=== PATIENT | female | born 1930 | race Caucasian/White ===

== ENCOUNTER 2017-12-26 11:18 | Emergency (ER) | payer MEDICARE, OTHER ==
[~2017-12-26] VITALS: Ht 144.8 cm; Wt 66.7 kg
[~2017-12-26 11:18] MED LIST: AROMASIN25 MG PO; ASPIRIN81 M2 PO; AZOPT OPHTH1 %/10 M1 OP; BYSTOLIC 5 MG5 M1 PO; CARAFATE 1 GM TA1 G1 PO; CHLORTHALIDONE25 MG PO; FLEXERIL PO; HYDROCODON-ACE1 EAC7 PO; LASIX 20 MG TAB20 MG PO; LEVOTHYROXINE0.05 MG PO; LIPITOR 10 MG10 M1 PO; MICARDIS 80 MG80 MG PO; NEURONTIN 300300 M1 PO; NEXIUM40 MG PO; NORVASC5 MG PO; PEPCID20 MG PO; PEPCID40 MG PO; PERCOCET 5-3251 EACH PO; PROAIR HFA8.5 GM IH; RESTASIS1 EACH OP; TRAMADOL 50 MG50 MG PO; TRIAMTERENE-HC1 EAC1 PO; ULORIC80 MG PO; VITAMIN C500 M1 PO; XALATAN2.5 ML OPHTHALMIC; ZOFRAN4 MG PO; ZPAK PO; ZYRTEC10 M2 PO
[2017-12-26 12:42] LABS: ABSOLUTE BASOPHILS 0.2 thou/uL (0.0-0.2); ABSOLUTE EOSINOPHILS 0.1 thou/uL (0.0-0.7); ABSOLUTE LYMPHOCYTES 1.6 thou/uL (0.8-5.3); ABSOLUTE MONOCYTES 0.9 thou/uL (0.0-1.2); ABSOLUTE NEUTROPHILS 11.1 thou/uL (1.6-8.1); BASOPHILS 1.2 %; EOSINOPHILS 0.9 %; HEMATOCRIT 41.5 % (37.0-47.0); HEMOGLOBIN 13.6 gm/dL (12.0-15.0); LYMPHOCYTES 11.8 %; MCH 29.4 pg (26.0-34.0); MCHC 32.7 g/dL (28.0-37.0); MCV 89.8 fL (80.0-100.0); MONOCYTES 6.4 %; MPV 7.6 fl. (7.2-11.1); NUCLEATED RBCS 0 /100WBC; PLATELET COUNT* 243 thou/uL (150-400); POLYS 79.7 %; RBC 4.62 mil/uL (4.20-5.00); RDW-CV 15.6 % (10.5-14.5)
[2017-12-26 12:49] LABS: ANION GAP 10 mmol/L (7-16); BUN 27 mg/dL (7-18); CALCIUM 9.2 mg/dL (8.5-10.1); CHLORIDE 101 mmol/L (98-107); CO2 28 mmol/L (21-32); CREATININE 1.1 mg/dL (0.6-1.3); GLUCOSE 150 mg/dL (70-99); POTASSIUM 3.8 mmol/L (3.5-5.1); SODIUM 139 mmol/L (136-145)
[2017-12-26 12:53] LABS: APTT 24.8 Seconds (25.0-31.3); INR 1.1; PROTIME 10.3 Seconds (9.20-11.50)
[2017-12-26 12:56] LABS: ALBUMIN 3.9 g/dL (3.4-5.0); ALKALINE PHOSPHATASE 96 U/L (46-116); LIPASE 321 U/L (73-393); SGOT 36 U/L (15-37); SGPT 36 U/L (30-65); TOTAL BILIRUBIN 0.5 mg/dL (<0.1-1.0); TOTAL PROTEIN 7.8 g/dL (6.4-8.2); TROPONIN-I LEVEL <0.06 ng/mL (<0.06)
[2017-12-26] MEDS ORDERED: HYDROCODONE-AP1 EAC6 PO (16:11)
[2017-12-26 16:23] VITALS: BP 134/72
--- NOTE | 2017-12-27 11:42 | EKG ---
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
== END 2017-12-26 16:24 | disposition home or self-care (01) ==
LOC: M.ERS 11:18
PROVIDERS: Physician Assistant
DX: M54.2 Cervicalgia (principal); I10 Essential (primary) hypertension; Z90.710 Acquired absence of both cervix and uterus; Z85.3 Personal history of malignant neoplasm of breast; Z85.43 Personal history of malignant neoplasm of ovary; Z96.652 Presence of left artificial knee joint; Z88.8 Allergy status to other drugs, medicaments and biological substances; Z88.5 Allergy status to narcotic agent; Z88.1 Allergy status to other antibiotic agents; Z88.2 Allergy status to sulfonamides; Z91.041 Radiographic dye allergy status; Z88.6 Allergy status to analgesic agent; Z87.891 Personal history of nicotine dependence

== ENCOUNTER → 2018-03-02 | Outpatient (CLI) | payer MEDICARE, OTHER ==
[~2018-03-02] MED LIST changes: +HYDROCODONE-AP1 EAC6 PO
== END ==
LOC: M.RAD 02-23 09:00
DX: R92.8 Other abnormal and inconclusive findings on diagnostic imaging of breast (principal)

== ENCOUNTER 2018-04-26 23:18 | Emergency (ER) | payer MEDICARE, OTHER ==
[~2018-04-26] VITALS: Ht 157.5 cm; Wt 68.0 kg
[2018-04-27 00:02] LABS: ABSOLUTE BASOPHILS 0.1 thou/uL (0.0-0.2); ABSOLUTE EOSINOPHILS 0.1 thou/uL (0.0-0.7); ABSOLUTE LYMPHOCYTES 1.9 thou/uL (0.8-5.3); ABSOLUTE MONOCYTES 1.4 thou/uL (0.0-1.2); ABSOLUTE NEUTROPHILS 9.7 thou/uL (1.6-8.1); BASOPHILS 0.5 %; HEMATOCRIT 37.9 % (37.0-47.0); HEMOGLOBIN 12.5 gm/dL (12.0-15.0); LYMPHOCYTES 14.3 %; MCH 29.1 pg (26.0-34.0); MCHC 32.9 g/dL (28.0-37.0); MCV 88.5 fL (80.0-100.0); MONOCYTES 10.3 %; MPV 7.8 fl. (7.2-11.1); NUCLEATED RBCS 0 /100WBC; PLATELET COUNT* 189 thou/uL (150-400); POLYS 73.9 %; RBC 4.28 mil/uL (4.20-5.00); RDW-CV 15.4 % (10.5-14.5); WBC 13.2 thou/uL (4.0-11.0)
[2018-04-27 00:10] LABS: ANION GAP 11 mmol/L (7-16); BUN 25 mg/dL (7-18); CALCIUM 8.8 mg/dL (8.5-10.1); CHLORIDE 99 mmol/L (98-107); CO2 25 mmol/L (21-32); GLUCOSE 152 mg/dL (70-99); SODIUM 135 mmol/L (136-145)
[2018-04-27 00:12] LABS: POTASSIUM 4.1 mmol/L (3.5-5.1)
[2018-04-27 00:17] LABS: ALBUMIN 3.3 g/dL (3.4-5.0); ALKALINE PHOSPHATASE 94 U/L (46-116); SGOT 35 U/L (15-37); SGPT 29 U/L (30-65); TOTAL BILIRUBIN 0.5 mg/dL (<0.1-1.0); TOTAL PROTEIN 7.4 g/dL (6.4-8.2); TROPONIN-I LEVEL <0.06 ng/mL (<0.06)
[2018-04-27] MEDS ORDERED: ZOFRAN4 MG PO (00:52)
[2018-04-27] MEDS ORDERED: PERCOCET 5-3251 EACH PO (00:52)
[2018-04-27 01:29] VITALS: BP 124/74
--- NOTE | 2018-04-27 11:41 | EKG ---
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 : 1930 Requested By: Husam Mcwilliams Order Number: [id number] MD: Jorge Cueto Measurements Intervals [place] Rate: 67 P: 24 ME: 181 QRS: -17 QRSD: 93 T: 23 QT: 418 QTc: 442 Interpretive Statements Sinus rhythm Left ventricular hypertrophy Compared to ECG 12/26/2017 12:18:26 No significant changes Electronically Signed On 04-27-2018 11:41:39 CDT by Jorge Cueto [email or web address] <ELECTRONICALLY SIGNED> By: Jorge Cueto MD, [facility] 04/27/18 1141 42 42 Jorge Cueto MD, [facility] /EPI
== END 2018-04-27 01:31 | disposition home or self-care (01) ==
LOC: M.ERS 23:18
PROVIDERS: Emergency Medicine
DX: M25.511 Pain in right shoulder (principal); I10 Essential (primary) hypertension; Z87.891 Personal history of nicotine dependence; Z88.0 Allergy status to penicillin; Z88.1 Allergy status to other antibiotic agents; Z88.6 Allergy status to analgesic agent; Z88.5 Allergy status to narcotic agent; Z88.8 Allergy status to other drugs, medicaments and biological substances; Z90.711 Acquired absence of uterus with remaining cervical stump; Z85.3 Personal history of malignant neoplasm of breast

== ENCOUNTER 2018-08-31 18:07 | Emergency (ER) | payer MEDICARE, OTHER ==
[~2018-08-31] VITALS: Ht 152.4 cm; Wt 63.5 kg
[2018-08-31 23:15] VITALS: BP 148/79
== END 2018-08-31 23:16 | disposition home or self-care (01) ==
LOC: M.ERS 18:07
DX: M25.512 Pain in left shoulder (principal); R51 Headache; W01.0XXA Fall on same level from slipping, tripping and stumbling without subsequent striking against object, initial encounter; Y93.89 Activity, other specified; Y92.89 Other specified places as the place of occurrence of the external cause; Y99.8 Other external cause status; I10 Essential (primary) hypertension; Z85.43 Personal history of malignant neoplasm of ovary; Z85.3 Personal history of malignant neoplasm of breast; Z96.652 Presence of left artificial knee joint; Z88.0 Allergy status to penicillin; Z88.5 Allergy status to narcotic agent; Z88.2 Allergy status to sulfonamides; Z88.8 Allergy status to other drugs, medicaments and biological substances

== ENCOUNTER 2018-12-12 09:45 | Inpatient (IN) | payer MEDICARE, OTHER ==
[~2018-12-12] VITALS: Ht 152.4 cm; Wt 69.9 kg
[~2018-12-12 09:45] MED LIST changes: -LEVOTHYROXINE0.05 MG PO; +SYNTHROID50 MCG PO
[2018-12-12 09:52] VITALS: BP 187/90
[2018-12-12] MEDS ORDERED: ATORVASTATIN CA40 MG PO (09:59)
[2018-12-12] MEDS ORDERED: AROMASIN25 MG PO (10:01)
[2018-12-12] MEDS ORDERED: NORCO 5-325 TA1 EACH PO (10:02)
[2018-12-12] MEDS ORDERED: MAXIMUM ENERGY1 EACH PO (10:02)
[2018-12-12] MEDS ORDERED: TRAMADOL 50 MG50 MG PO (10:04)
[2018-12-12 10:28] LABS: ABSOLUTE EOSINOPHILS 0.1 thou/uL (0.0-0.7); ABSOLUTE LYMPHOCYTES 1.9 thou/uL (0.8-5.3); ABSOLUTE MONOCYTES 0.7 thou/uL (0.0-1.2); BASOPHILS 0.5 %; EOSINOPHILS 1.6 %; HEMATOCRIT 42.1 % (37.0-47.0); HEMOGLOBIN 13.7 gm/dL (12.0-15.0); MCHC 32.6 g/dL (28.0-37.0); MCV 91.9 fL (80.0-100.0); MONOCYTES 7.6 %; MPV 7.4 fl. (7.2-11.1); NUCLEATED RBCS 0 /100WBC; PLATELET COUNT* 210 thou/uL (150-400); POLYS 68.3 %; RBC 4.58 mil/uL (4.20-5.00); RDW-CV 13.8 % (10.5-14.5); WBC 8.8 thou/uL (4.0-11.0)
[2018-12-12 10:36] LABS: ANION GAP 8 mmol/L (7-16); BUN 25 mg/dL (7-18); CALCIUM 9.1 mg/dL (8.5-10.1); CHLORIDE 104 mmol/L (98-107); CO2 25 mmol/L (21-32); CREATININE 0.9 mg/dL (0.6-1.3); GLUCOSE 119 mg/dL (70-99); POTASSIUM 4.1 mmol/L (3.5-5.1); PROTIME 9.9 Seconds (9.20-11.50); SODIUM 137 mmol/L (136-145)
[2018-12-12 10:47] LABS: ALBUMIN 3.1 g/dL (3.4-5.0); ALKALINE PHOSPHATASE 71 U/L (46-116); LIPASE 466 U/L (73-393); NT-PRO BRAIN NAT PEPTIDE 149 pg/mL (<300); SGOT 18 U/L (15-37); SGPT 24 U/L (30-65); TOTAL BILIRUBIN 0.7 mg/dL (<0.1-1.0); TOTAL PROTEIN 6.8 g/dL (6.4-8.2); TROPONIN-I LEVEL <0.06 ng/mL (<0.06)
[2018-12-12 14:38] LABS: URINE BILIRUBIN NEGATIVE (Negative); URINE BLOOD TRACE (Negative); URINE CLARITY CLEAR; URINE COLOR YELLOW; URINE GLUCOSE-RANDOM NEGATIVE (Negative); URINE KETONES NEGATIVE (Negative); URINE LEUKOCYTES-REFLEX NEGATIVE (Negative); URINE NITRITE-REFLEX NEGATIVE (Negative); URINE PROTEIN NEGATIVE (Negative); URINE UROBILINOGEN 0.2 E.U./dl (0.2-1.0)
--- NOTE | 2018-12-12 15:47 | 2DMMODE ---
[place] [address] 2 D/M-MODE ECHOCARDIOGRAM Name: AUNDREA STUART Room: 170-16 ADM IN .R.#: [id number] Admission: 12/12/18 Attend Phys: Sharlene Sun, Discharge: Date of : 32 Date of Service: 12/12/18 1547 Report #: [id number] THIS REPORT FOR: //name// APPROVED REPORT Study performed: 12/12/2018 14:29:02 EXAM: Comprehensive 2D, Doppler, and color-flow Echocardiogram Patient Location: In-Patient Room #: er Status: routine BSA: 1.60 HR: 61 bpm BP: 92/42 mmHg Rhythm: NSR Other Information Study Quality: Good Indications Hypotension Chest Pain 2D Dimensions IVSd: 10.06 (7-11mm) LVOT Diam: 20.78 (18-24mm) LVDd: 38.91 mm PWd: 8.65 (7-11mm) Ascending Ao: 35.56 (22-36mm) LVDs: 23.85 (25-40mm) Aortic Root: 31.33 mm Volumes Left Atrial Volume (Systole) LA ESV Index: 16.60 mL/m2 Aortic Valve AoV Peak Kian.: 1.10 m/s AO Peak Gr.: 4.84 mmHg LVOT Max P.95 mmHg AO Mean Gr.: 3.01 mmHg LVOT Mean P.77 mmHg LVOT Max V: 1.11 m/s AO V2 VTI: 24.73 cm LVOT Mean V: 0.77 m/s JAZ (VTI): 3.67 cm2 LVOT V1 VTI: 26.76 cm Mitral Valve E/A Ratio: 0.63 MV Decel. Time: 279.71 [place] [address] 2 D/M-MODE ECHOCARDIOGRAM Name: AUNDREA STUART Room: [address] IN M.R.#: [id number] Admission: 12/12/18 Attend Phys: Sharlene Sun, Discharge: Date of : 31 Date of Service: 12/12/18 1547 Report #: [id number] MV E Max Kian.: 0.57 m/s MV PHT: 81.12 ms MVA (PHT): 2.71 cm2 TDI E/Lateral E': 9.50 E/Medial E': 8.14 Medial E' Kian.: 0.07 m/s Lateral E' Kian.: 0.06 m/s Pulmonary Valve PV Peak Kian.: 0.69 m/s PV Peak Gr.: 1.92 mmHg Tricuspid Valve RAP Estimate: 5.00 mmHg TR Peak Gr.: 20.34 mmHg RVSP: 25.00 mmHg PA Pressure: 25.00 mmHg Left Ventricle The left ventricle is normal size. There is normal LV segmental wall motion. There is normal left ventricular wall thickness. Left ventricular systolic function is normal. LVEF is 60-65%. Grade I - abnormal relaxation pattern. Right Ventricle The right ventricle is normal size. The right ventricular systolic function is normal. Atria The left atrium size is normal. The right atrium size is normal. Aortic Valve The aortic valve is normal in structure. Mild aortic regurgitation. There is no aortic valvular stenosis. Mitral Valve The mitral valve is normal in structure. There is no mitral valve regurgitation noted. No evidence of mitral valve stenosis. Tricuspid Valve The tricuspid valve is normal in structure. Trace tricuspid regurgitation. No pulmonary hypertension. Pulmonic Valve The pulmonary valve is normal in structure. [place] [address] 2 D/M-MODE ECHOCARDIOGRAM Name: AUNDREA STUART Justice Room: [address] IN [facility]#: [id number] Admission: 12/12/18 Attend Phys: Sharlene Sun, Discharge: Date of : 31 Date of Service: 12/12/18 1547 Report #: [id number] Great Vessels The aortic root is normal in size. IVC is normal in size and collapses >50% with inspiration. Pericardium There is no pericardial effusion. <Conclusion> The left ventricle is normal size. There is normal left ventricular wall thickness. Left ventricular systolic function is normal. LVEF is 60-65%. Grade I - abnormal relaxation pattern. Mild aortic regurgitation. Mild pulmonic regurgitation. Trace tricuspid regurgitation. No pulmonary hypertension. IVC is normal in size and collapses >50% with inspiration. <ELECTRONICALLY SIGNED> By: Adonay Medina MD, FACC 12/12/18 1547 1547 1547 Adonay Medina MD, FACC /INF
[2018-12-12 16:10] VITALS: BP 162/74
[2018-12-12 16:11] VITALS: BP 118/60
--- NOTE | 2018-12-12 16:46 | EKG ---
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 12/12/18 1645 0954 0954 Adonay Medina MD, [facility] /EPI
--- NOTE | 2018-12-12 18:48 | NUR ---
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 PT DENIES ANY PAIN, UP WITH STANDBY ASSIST. PT TO BE NPO AFTER MIDNIGHT FOR ECHO TOMORROW.
[2018-12-12 19:44] VITALS: BP 133/59
[2018-12-13] VITALS (8 sets, daily range): BP systolic 114–167; BP diastolic 59–74
--- NOTE | 2018-12-13 05:06 | NUR ---
PT RESTING IN BED. RA, SR/SB ON MONITOR. PT HAS BEEN NPO SINCE MIDNIGHT FOR AM CARDIAC CONSULT. BP HAS BEEN STABLE AND NOT ELEVATED DURING MY SHIFT.
--- NOTE | 2018-12-13 12:37 | NUR ---
Pt is A&O. Resides at home with her . Independent and active. No DME. Hx of and SNF in [place], [place]. Granddaughter is planning to come and stay with Pt and , both have surgeries planned. [place] is home at [place], no needs anticipated.
--- NOTE | 2018-12-13 17:12 | NUR ---
ASSUMED PT CARE AT 0730, FULL ASSESMENT DONE CHARTED. PT A/X4, UP AD GIULIA IN ROOM, DENIES PAIN, STATES SHE BECOMES NAUSEATED ON AND OFF, PT NEVER REPORTS IT WHEN HAPPENS WHEN RN GOES TO CHECK ON PT BUT IT HAS ALREADY PASSED. PTS MEDS ADJUSTED TODAY PER CARDIOLOGY. BP STABLE, SB ON THE MONITOR. CALLS APPROPRIALTY FOR NEEDS. WILL CONTINUE TO MONITOR.
[2018-12-14 05:13] VITALS: BP 198/89
[2018-12-14 05:38] VITALS: BP 196/74
--- NOTE | 2018-12-14 05:38 | NUR ---
PATIENT'S BLOOD PRESSURE ELEVATED THIS AM, ALTHOUGH WNL THROUGHOUT NIGHT. PATIENT C/O NAUSEA AND HEADACHE WITH THE HYPERTENSION. PHYSICIAN PAGED FOR ORDERS. AWAITING CALL BACK. OVERNIGHT OXIMETRY STUDY COMPLETED. CALL LIGHT WITHIN REACH
[2018-12-14 08:00] VITALS: BP 156/63
--- NOTE | 2018-12-14 08:51 | NUR ---
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 VSS, PT DENIES ANY PAIN, NAUSEA, SOA. C/O IRRITATION TO RIGHT EYE, STATES WOULD LIKE AN ANTIBIOTIC, EDUCATED PT SHE IS CURRENTLY GETTING ABT GTTS TO EYE BUT WOULD NOTIFY DR OF ISSUE. SCLERA IS WHITE WITH NO S/S IRRITATION BUT EYE LID IS RED AND SLIGHTLY SWOLLEN. WILL CONT TO MONITOR.
[2018-12-14 11:55] VITALS: BP 136/72
[2018-12-14] MEDS ORDERED: BYSTOLIC 5 MG5 M1 PO (12:03)
[2018-12-14] MEDS ORDERED: MICARDIS 80 MG80 MG PO (12:03)
[2018-12-14] MEDS ORDERED: KEFLEX500 M1 PO (12:08)
[2018-12-14 12:13] VITALS: BP 136/72
--- NOTE | 2018-12-14 12:32 | CON ---
[address] [address] CONSULTATION Name: SADEAUNDREA R Room: [address] IN M.R.#: [id number] Admission: 12/12/18 Attend Phys: Sharlene Sun MD Discharge: Date of : 31 Report #: [id number] THIS REPORT FOR: //name// CC: Sharlene Aguilar MD DATE OF SERVICE: 12/13/2018 CARDIOLOGY CONSULTATION HISTORY OF PRESENT ILLNESS: The patient is an 88-year-old white female who I was asked to see in the hospital today because of her elevated blood pressure. The patient has had multiple hospitalizations here at [facility]. She actually presented with a TIA back in 1996. No intervention was recommended, she was placed on Ticlid. She has been to the pain clinic in the past for chronic back pain. She is not very active at this time. She has a long history of hypertension. She has been on Bystolic and Micardis twice a day. She has been followed by a doctor up in [place] for her hypertension. She had a syncopal spell, felt to be secondary to low blood pressure and she was actually taken off of amlodipine about 3 weeks ago. She states that she was doing well; however, yesterday she was at home when she took her blood pressure, it was elevated. Her brought her to the hospital and she was admitted. She denies any chest pain, shortness of breath, palpitation, syncope, or peripheral edema. She has occasional headaches. No sweating spells. She has never been told she had a heart murmur. PAST MEDICAL HISTORY: She has had uterine cancer and had a hysterectomy in the past. She has had breast cancer and had radiation therapy. She is currently on chemotherapy. She had previous knee surgery. MEDICATIONS: Include Bystolic, Micardis, Neurontin, aspirin, Lipitor, chlorthalidone, tramadol, hydrocodone. ALLERGIES: SHE HAS A PREVIOUS INTOLERANCE TO CLONIDINE, FENOFIBRATE, LISINOPRIL, MORPHINE, RAMIPRIL, SULFA DRUGS. FAMILY HISTORY: Negative for heart disease. SOCIAL HISTORY: She is . She and her lives in [place]. Quit smoking years ago. No alcohol abuse. REVIEW OF SYSTEMS: She has had no history of asthma, no liver disease, no kidney disease, no psychiatric illness, no chronic skin condition. PHYSICAL EXAMINATION: [place] [address] CONSULTATION Name: AUNDREA STUART Room: [address] IN [facility]#: [id number] Admission: 12/12/18 Attend Phys: Sharlene Sun MD Discharge: Date of : 31 Report #: [id number] GENERAL: Revealed an elderly female sitting in chair. She appeared in no acute distress. VITAL SIGNS: She had a blood pressure of 180/90, pulse 70, she is afebrile. HEENT: She was anicteric, conjunctiva pink. Mucous members moist. NECK: Veins do not appear distended. No carotid bruits. CHEST: Clear to auscultation. CARDIOVASCULAR: Regular rate and rhythm. ABDOMEN: Soft, nontender. EXTREMITIES: Had no edema. Dorsalis pedis pulse 2+ bilaterally. SKIN: Warm and dry. NEUROLOGIC: Nonfocal. LYMPH: No adenopathy. MUSCULOSKELETAL: No joint effusion. LABORATORY DATA: ECG showed a sinus rhythm with no significant ST or T-wave change. Workup, she actually had an echocardiogram done yesterday that showed an ejection fraction of 65%, mild aortic insufficiency. She had lab work included sodium 137, creatinine 0.9. Liver function studies were normal. Troponin 0.06. BNP 149. White blood cell count 8.8, hemoglobin 13.7. X-rays performed last night in the Emergency Room included portable chest x-ray that showed normal heart size, calcified lymph nodes, no pleural effusion. Previous carotid Doppler, MRA a year ago because of previous carotid stenosis showed no high grade stenosis, perhaps less than 50%. MRI of the head done a year ago showed no arterial stenosis. IMPRESSION AND RECOMMENDATIONS: 1. Hypertension. No evidence of secondary causes. I would recommend exercise and low sodium diet. The patient is currently on a beta mariangel, diuretic and ARB. In the past, she has been intolerant of multiple medications including HYDRALAZINE, CLONIDINE, LISINOPRIL, SALOMÓN INHIBITOR AND SPIRONOLACTONE. At this time, I would consider adding a clonidine patch. 2. Previous transient ischemic attack. No recurrent symptoms. 3. History of breast cancer. 4. Chronic back pain. <ELECTRONICALLY SIGNED> By: Jerald Wick MD, FACC 12/14/18 1232 1324 [id number] Wick MD, FAC /nt
--- NOTE | 2018-12-14 15:17 | NUR ---
PT DISCHARGED HOME WITH SPOUSE VIA WC WITH NURSING STAFF. USER ACCEPTANCE TESTER AND IV REMOVED. DISCHARGE INSTRUCTIONS INCLUDING FOLLOW UP APPTS AND MEDICATIONS GIVEN, PT STATES UNDERSTANDING.
== END 2018-12-14 14:33 | disposition home or self-care (01) | DRG 311 ==
LOC: M.ERS 09:45 → M.TBA-ER 11:09 → M.2W 11:09
PROVIDERS: Emergency Medicine; ADMIT Internal Medicine
DX: I24.8 Other forms of acute ischemic heart disease (principal); I50.32 Chronic diastolic (congestive) heart failure; Z96.652 Presence of left artificial knee joint; G89.29 Other chronic pain; M54.9 Dorsalgia, unspecified; I11.0 Hypertensive heart disease with heart failure; M75.101 Unspecified rotator cuff tear or rupture of right shoulder, not specified as traumatic; Z90.711 Acquired absence of uterus with remaining cervical stump; Z85.43 Personal history of malignant neoplasm of ovary; Z85.3 Personal history of malignant neoplasm of breast; Z88.6 Allergy status to analgesic agent; Z88.0 Allergy status to penicillin; Z88.2 Allergy status to sulfonamides; Z88.8 Allergy status to other drugs, medicaments and biological substances; Z87.891 Personal history of nicotine dependence; Z85.42 Personal history of malignant neoplasm of other parts of uterus; Z92.3 Personal history of irradiation; Z92.21 Personal history of antineoplastic chemotherapy; Z86.73 Personal history of transient ischemic attack (TIA), and cerebral infarction without residual deficits; Z79.82 Long term (current) use of aspirin; Z79.899 Other long term (current) drug therapy

== ENCOUNTER → 2019-05-10 | Outpatient (CLI) | payer MEDICARE, OTHER ==
[~2019-05-10] MED LIST changes: +ALPHAGAN P5 ML OPHTHALMIC; +ATORVASTATIN CA40 MG PO; +ELIQUIS5 MG PO; +KEFLEX500 M1 PO; +MAXIMUM ENERGY1 EACH PO; +NORVASC2.5 MG PO; +OXYCODONE HCL 55 MG PO; +OXYCODONE HCL5 MG PO; +PROBIOTIC ACID1 EAC3 PO
== END ==
LOC: M.RAD 09:48
DX: M19.011 Primary osteoarthritis, right shoulder (principal)

== ENCOUNTER 2019-05-17 06:53 | Inpatient (IN) | payer MEDICARE, OTHER ==
[2019-05-10 09:14] LABS: ABSOLUTE EOSINOPHILS 0.3 thou/uL (0.0-0.7); ABSOLUTE LYMPHOCYTES 1.7 thou/uL (0.8-5.3); ABSOLUTE MONOCYTES 0.6 thou/uL (0.0-1.2); ABSOLUTE NEUTROPHILS 3.6 thou/uL (1.6-8.1); BASOPHILS 0.4 %; EOSINOPHILS 4.2 %; HEMATOCRIT 42.6 % (37.0-47.0); HEMOGLOBIN 14.2 gm/dL (12.0-15.0); LYMPHOCYTES 27.5 %; MCH 29.7 pg (26.0-34.0); MCHC 33.3 g/dL (28.0-37.0); MCV 89.3 fL (80.0-100.0); MONOCYTES 9.6 %; NUCLEATED RBCS 0 /100WBC; PLATELET COUNT* 258 thou/uL (150-400); POLYS 58.3 %; RBC 4.77 mil/uL (4.20-5.00); RDW-CV 14.4 % (10.5-14.5); WBC 6.2 thou/uL (4.0-11.0)
[2019-05-10 09:26] LABS: APTT 26.8 Seconds (25.0-31.3)
[2019-05-10 09:45] LABS: ALBUMIN 3.5 g/dL (3.4-5.0); CALCIUM 9.9 mg/dL (8.5-10.1); CREATININE 0.8 mg/dL (0.6-1.3); POTASSIUM 3.7 mmol/L (3.5-5.1); TOTAL BILIRUBIN 0.6 mg/dL (<0.1-1.0); TOTAL PROTEIN 7.8 g/dL (6.4-8.2)
[2019-05-10 10:39] LABS: ESR (SEDRATE) 32 mm/hr (0-30)
[~2019-05-17] VITALS: Ht 152.4 cm; Wt 66.3 kg
--- NOTE | ~2019-05-17 | OP ---
[address] [address] OPERATIVE REPORT Name: SADEAUNDREA CORNELIUS Room: [address] IN .R.#: [id number] Admission: 05/17/19 Attend Phys: Jayro Yanez Discharge: Date of : 31 Report #: [id number] THIS REPORT FOR: //name// CC: Xavi Curiel DICTATED BY: Morteza Griffin DO DATE OF SERVICE: 05/17/2019 PREOPERATIVE DIAGNOSIS: Right shoulder rotator cuff tear arthropathy. POSTOPERATIVE DIAGNOSIS: Right shoulder rotator cuff tear arthropathy. SURGEON: Guilherme Gutierrez DO. INTAKE COUNSELOR: Morteza Griffin DO. PROCEDURE PERFORMED: Right reverse total shoulder arthroplasty. ANESTHESIA: General. ESTIMATED BLOOD LOSS: 100 mL. DRAINS: None. SPECIMENS: None. COMPLICATIONS: None. CONDITION: The patient is stable to PACU. ORTHOPEDIC IMPLANTS: 1. Tornier 25 mm baseplate. 2. Tornier 25 mm central screw. 3. Tornier 26 and 32 mm locking screws. 4. Tornier 36 mm eccentric glenosphere. 5. Tornier size 3 humeral stem. 6. Tornier reversed tray +0 mm thickness. 7. Tornier reversed articular insert, +9 mm. INDICATIONS FOR PROCEDURE: The patient is a pleasant 88-year-old female who has had severe right shoulder pain and immobility due to pain and weakness for some time. She ultimately had x-rays, which demonstrated signs of advanced arthritis as well as likelihood of rotator cuff tear, leading [place] [address] OPERATIVE REPORT Name: AUNDREA STUART Room: [place] [address] ADM IN .R.#: [id number] Admission: 05/17/19 Attend Phys: Jayro Yanez Discharge: Date of : 31 Report #: [id number] It was recommend after failing conservative measures due to her overall poor quality of life she will be a candidate for a right reverse total shoulder arthroplasty. Risks, benefits, complications, indications, alternatives were reviewed with the patient wished to proceed. DESCRIPTION OF PROCEDURE: The patient was brought to the operative suite, placed on a well-padded table, given the benefit of general anesthesia. The right upper extremity was then sterilely prepped and draped in standard fashion. Time was taken to ensure correct patient, procedure, operative site and confirmed that antibiotics were given in the form of clindamycin 600 mg IV. Everybody in the room was in agreeance that time, a 10 blade scalpel was used to make an incision over the anterior aspect of the right shoulder. Bovie electrocautery was used to dissect subcutaneously once the interval was encountered and a Metzenbaum scissors and pickup were used to carefully separate the lateral aspect of the cephalic vein and retract the deltoid laterally and the pectoralis medially. The clavipectoral fascia was incised just lateral to the conjoined tendon, Farmer deltoid retractor was placed laterally and the LINQ retractor medially. The bicipital groove was palpated and not entered. A Metzenbaum scissor was used to follow the biceps tendon up to its stump on the superior glenoid. Once rotator interval and biceps tendon were completely freed up, the biceps tenotomy was performed with the Metzenbaum scissors. We then used to peel-back the technique of her subscapularis tagged and the free end of the subscapularis for retraction purposes. A circumferential capsular release was performed on the humeral shaft. Osteophytes removed with a rongeur. We then removed the MGHL from the undersurface of the subscapularis and placed an anterior glenoid retractor. Bovie electrocautery was used to circumferentially remove the labrum and the bicipital stump. We then used a pituitary retractor to push the humeral head posteriorly. At this point, we had adequate glenoid exposure. Prior to this, however, we did partially prepare the proximal humerus. Once the humerus was dislocated anteriorly we used a canal finder and made a humeral head resection with the saw at the appropriate position with 30 degrees of retroversion. Once this was removed, we sequentially trialed and broached up to a size 3. We then placed the drill pin just inferior to the center of the glenoid in an angle to try eccentrically ream approximately 10-12 degrees off the anterior glenoid with slight inferior tilt utilizing a Tornier split (software projection from the CT scan). Once the drill pin was placed we then sequentially reamed with care taken not to violate cortical bone. Once we were pleased with our reaming of glenoid surface, I felt we were able to correct the gila river 17 degrees of retroversion to somewhere in the neighborhood of 5 degrees as well as restore neutral inclination. At this point, we drilled for the center hole to a depth of 25 mm and then placed a 25 mm threaded baseplate with a 25 mm central locking screw. Once this was placed, the superior and inferior holes were drilled and measured to 32 and 26 mm respectively and appropriate length locking screws were placed. Following this, a 36 mm eccentric glenosphere was placed over the baseplate. This central screw was engaged, Nash taper was engaged and finally locked into place. At this point, [place] [address] OPERATIVE REPORT Name: SADEAUNDREA CORNELIUS Room: [place] [address] ADM IN M.R.#: [id number] Admission: 05/17/19 Attend Phys: Jayro Yanez Discharge: Date of : 31 Report #: [id number] we directed our attention back to the humeral side. We trialled with +6 and +9 mm articular insert with the +9. We were overall, more pleased with the tension on the deltoid and conjoined tendon. There are no signs of liftoff or any concern for subluxation or dislocation with either implant. We then dislocated the shoulder manually, removed the trial implant, irrigated the wound thoroughly, placed a final size 3 stem with a neutral tray and a +9 mm articular insert. Once the locking ring was engaged and we then reduced the shoulder once again had excellent stability through range of motion. We were overall pleased with the result. Irrigated the wound thoroughly removed. Removed the free suture that tagged the subscapularis. We then approximated the deltopectoral interval with a #1 Vicryl in xabiyv-yj-mebjg fashion. Subcutaneous was closed with 2-0 Vicryl followed by a running 3-0 Stratafix and Dermabond glue was applied followed by Mepilex dressing and sling. The patient was awoken from anesthesia, brought to PACU in stable condition after that stay to Dr. Gutierrez and present and accounted for all critical aspects of the case. By: 1125 1435Guilherme Gutierrez DO /katty
[~2019-05-17 06:53] MED LIST changes: -ELIQUIS5 MG PO; -OXYCODONE HCL 55 MG PO; -OXYCODONE HCL5 MG PO
[2019-05-17 07:45] VITALS: BP 139/83
[2019-05-17 15:30] VITALS: BP 128/67
[2019-05-17 16:00] VITALS: BP 170/60
--- NOTE | 2019-05-17 19:11 | NUR ---
PT A/O. MED SURG STATUS AND ALL VSS ON 3L. DENIES CP, SOA. C/O MILD RIGHT ARM POST OP PAIN-MEDICATED PER EMAR. SLING IN PLACE. SURGICAL DRESSING CDI. BED ALARM ON, CALL LIGHT IN REACH. EDUCATED ON SAFETY AND PLAN OF CARE. PLEASE SEE ASSESSMENT FOR ADDITIONAL INFORMATION. WILL CONT TO MONITOR
[2019-05-17 20:45] VITALS: BP 138/78
[2019-05-18] VITALS: BP 99/48
[2019-05-18 05:23] LABS: HEMATOCRIT 37.1 % (37.0-47.0); HEMOGLOBIN 12.3 gm/dL (12.0-15.0)
--- NOTE | 2019-05-18 05:28 | NUR ---
PT WAS UP MOST OF SHIFT. VSS ON RA. ASSESSMENT DOCUMENTED. PT WAS ANXIOUS ABOUT MEDS AND WAHT TO TAKE C/O LONG LIST OF ALLERGIES TO DIFFERENT MEDS. EMAR. PT REFUSED BP MED METOPROLOL BECAUSE OF CONCERNS OF ALLERGY. PT PREFERS TO TAKE HER OWN BP MEDS NEBIVOLOL. EDUCATION WAS GIVEN REGARDING NEBIVOLOL AND METOPROLOL BEING FROM SAME CLASS. CONTACT ISOLATION IN PLACE. HOURLY ROUNDINGS MADE. WILL CONTINUE TO MONITOR.
[2019-05-18 08:20] VITALS: BP 158/98
[2019-05-18 12:04] VITALS: BP 143/71
--- NOTE | 2019-05-18 12:55 | NUR ---
INITIAL ASSESSMENT: Pt evaluated for d/c planning needs. Reviewed chart and spoke with nurse, pt, spouse and daughter. Pt is alert and oriented. Pt lives in house with spouse. Daughter lives in [place]. Pt has walker at home and had home health after knee replacement surgery while staying with her daughter in [place]. Pt plans on returning home on d/c from hospital. Will remain available to assist as needed.
[2019-05-18 15:53] VITALS: BP 135/64
--- NOTE | 2019-05-18 19:31 | NUR ---
05/18 Days: Patient care assumed around 1330. Pain seemed better controlled post lidocaine patch. Ate well with dinner. Up with PT in halls
[2019-05-18 20:00] VITALS: BP 171/74
[2019-05-19 04:46] VITALS: BP 143/65
--- NOTE | 2019-05-19 05:35 | NUR ---
ASSUMED PT CARE APPROX 1930. PT IS AWAKE AND ORIENTED X4. VSS ON RA. ASSESSMENT DONE AND CHARTED. MAINTAINED RIGHT ARM SLING IN PLACE, COLD COMPRESS APPLIED ON RIGHT ARM AND SHOULDER. PT C/O RIGHT ARM PAIN, RELIEVED BY PAIN MEDS GIVEN PER JAN. PT WAS ABLE TO SLEEP MOST OF THE NIGHT. CALL LIGHT WITHIN REACH. HOURLY ROUNDING DONE FOR PT SAFETY. FALL PRECAUTIONS IN PLACE.
[2019-05-19 07:59] VITALS: BP 121/79; BP 155/68
--- NOTE | 2019-05-19 09:54 | NUR ---
ASSUMED CARE OF PT AT 0730. PT RESTING IN BED. VISITORS AT BEDSIDE. PT A&0X4, COMPLAINS OF PAIN TO RUE. TREATED WITH PRN PAIN MEDICATION WITH RELIEF. PT MED SURG STATUS. ON RA SAT UPPER 90'S. DENIES ANY SHORTNESS OF BREATH. PT UP WITH SBA TO BATHROOM. RUE SLING IN PLACE, NWB RUE. PT GOAL FOR TODAY IS PAIN MGMT, INCREASE ACTIVITY, HAVE A BOWEL MOVEMENT AND DISCHARGE PLANNING TO HOME. PT IN CONTACT ISOLATION FOR MRSA IN [place]. AM ASSESSMENT CHARTED. MEDICATIONS PER JAN. PT REPOSITIONS SELF. HOURLY ROUNDING OBSERVED. BED IN LOW POSITION. CALL LIGHT WITHIN REACH. WILL CONTINUE PLAN OF CARE.
[2019-05-19] MEDS ORDERED: OXYCODONE HCL 55 MG PO (10:02)
[2019-05-19] MEDS ORDERED: ELIQUIS5 MG PO (10:02)
[2019-05-19] MEDS ORDERED: OXYCODONE HCL5 MG PO (12:12)
[2019-05-19 12:51] VITALS: BP 121/79
[2019-05-19 12:54] VITALS: BP 129/72
--- NOTE | 2019-05-19 15:23 | NUR ---
CLARIFIED WITH , PT TO TAKE ASPIRIN AND ELIQUIS AT HOME. HOME MEDICATIONS GIVEN TO PT AT DISCHARGE. PT EDUCATED ON F/U WITH PCP, CARDIOLOGY AND ORTHO
== END 2019-05-19 15:10 | disposition home health service (06) | DRG 483 ==
LOC: M.PRE → M.2W 06:53 → M.TBA 06:53 → M.PRE 06:55 → M.2W 15:48
PROVIDERS: Orthopaedic Surgery; ADMIT Internal Medicine
PROC: 0RRJ00Z Replacement of Right Shoulder Joint with Reverse Ball and Socket Synthetic Substitute, Open Approach (ICD-10-PCS; principal; 2019-05-17)
DX: M75.101 Unspecified rotator cuff tear or rupture of right shoulder, not specified as traumatic (principal); Z96.652 Presence of left artificial knee joint; I10 Essential (primary) hypertension; M19.011 Primary osteoarthritis, right shoulder; Z88.0 Allergy status to penicillin; Z88.2 Allergy status to sulfonamides; Z88.8 Allergy status to other drugs, medicaments and biological substances; Z88.6 Allergy status to analgesic agent; Z91.041 Radiographic dye allergy status; Z90.711 Acquired absence of uterus with remaining cervical stump; Z85.43 Personal history of malignant neoplasm of ovary; Z85.3 Personal history of malignant neoplasm of breast; Z92.3 Personal history of irradiation; Z86.73 Personal history of transient ischemic attack (TIA), and cerebral infarction without residual deficits; Z87.891 Personal history of nicotine dependence; Z79.899 Other long term (current) drug therapy

== ENCOUNTER → 2019-07-04 | Outpatient (CLI) | payer MEDICARE, OTHER ==
[~2019-07-04] MED LIST changes: +ELIQUIS5 MG PO; +OXYCODONE HCL 55 MG PO; +OXYCODONE HCL5 MG PO
== END ==
LOC: M.RAD 06-04 15:11
DX: Z12.31 Encounter for screening mammogram for malignant neoplasm of breast (principal); M85.80 Other specified disorders of bone density and structure, unspecified site; E55.9 Vitamin D deficiency, unspecified; D05.10 Intraductal carcinoma in situ of unspecified breast; Z79.811 Long term (current) use of aromatase inhibitors

== ENCOUNTER → 2019-07-06 | Outpatient (CLI) | payer MEDICARE, OTHER | LOC: M.RAD 12:20 | DX: R92.8 Other abnormal and inconclusive findings on diagnostic imaging of breast (principal) ==

== ENCOUNTER 2019-08-09 14:53 | Emergency (ER) | payer MEDICARE, OTHER ==
[~2019-08-09] VITALS: Ht 154.9 cm; Wt 63.0 kg
[2019-08-09] MEDS ORDERED: LEVSIN0.125 MG PO (15:09)
[2019-08-09] MEDS ORDERED: PEPCID20 MG PO (15:09)
[2019-08-09 15:44] LABS: ABSOLUTE EOSINOPHILS 0.3 thou/uL (0.0-0.7); ABSOLUTE LYMPHOCYTES 2.2 thou/uL (0.8-5.3); ABSOLUTE MONOCYTES 0.9 thou/uL (0.0-1.2); BASOPHILS 0.7 %; EOSINOPHILS 4.7 %; HEMATOCRIT 37.3 % (37.0-47.0); HEMOGLOBIN 12.5 gm/dL (12.0-15.0); LYMPHOCYTES 34.2 %; MCH 29.7 pg (26.0-34.0); MCHC 33.4 g/dL (28.0-37.0); MCV 88.8 fL (80.0-100.0); MONOCYTES 13.8 %; MPV 7.4 fl. (7.2-11.1); NUCLEATED RBCS 0 /100WBC; PLATELET COUNT* 229 thou/uL (150-400); POLYS 46.6 %; RDW-CV 14.4 % (10.5-14.5); WBC 6.4 thou/uL (4.0-11.0)
[2019-08-09 15:57] LABS: CALCIUM 9.3 mg/dL (8.5-10.1); CREATININE 1.1 mg/dL (0.6-1.3); POTASSIUM 3.5 mmol/L (3.5-5.1)
[2019-08-09] MEDS ORDERED: NORCO 5-325 TA1 EAC1 PO (16:11)
[2019-08-09] MEDS ORDERED: CENTANY30 GM TOP (16:11)
[2019-08-09 16:58] VITALS: BP 142/64
== END 2019-08-09 17:00 | disposition home or self-care (01) ==
LOC: M.ERS 14:53
PROVIDERS: Nurse Practitioner Family
DX: L03.115 Cellulitis of right lower limb (principal); S80.861A Insect bite (nonvenomous), right lower leg, initial encounter; I10 Essential (primary) hypertension; Z90.711 Acquired absence of uterus with remaining cervical stump; Z85.43 Personal history of malignant neoplasm of ovary; Z85.3 Personal history of malignant neoplasm of breast; Z90.10 Acquired absence of unspecified breast and nipple; Z96.652 Presence of left artificial knee joint; Z86.73 Personal history of transient ischemic attack (TIA), and cerebral infarction without residual deficits; Z91.041 Radiographic dye allergy status; Z88.0 Allergy status to penicillin; Z88.2 Allergy status to sulfonamides; Z88.1 Allergy status to other antibiotic agents; Z88.6 Allergy status to analgesic agent; Z88.8 Allergy status to other drugs, medicaments and biological substances; Z87.891 Personal history of nicotine dependence; W57.XXXA Bitten or stung by nonvenomous insect and other nonvenomous arthropods, initial encounter; Y93.89 Activity, other specified; Y92.89 Other specified places as the place of occurrence of the external cause; Y99.8 Other external cause status

== ENCOUNTER → 2019-12-06 | Outpatient (CLI) | payer MEDICARE, OTHER ==
[~2019-12-06] MED LIST changes: +CENTANY30 GM TOP; +LEVSIN0.125 MG PO; +NORCO 5-325 TA1 EAC1 PO
== END ==
LOC: M.RAD 11-30 16:26
DX: C57.4 Malignant neoplasm of uterine adnexa, unspecified (principal); D05.10 Intraductal carcinoma in situ of unspecified breast; M85.80 Other specified disorders of bone density and structure, unspecified site; E55.9 Vitamin D deficiency, unspecified; N64.89 Other specified disorders of breast